=== PATIENT | male | born 1945 | race Caucasian/White ===

== ENCOUNTER 2018-09-04 14:41 | Emergency (ER) | payer MEDICARE, MEDICAID ==
[2018-09-04] MEDS ORDERED: Sodium Chloride 0.9% 10 ML Syringe FLUSH PRN (14:45)
[2018-09-04] MEDS ORDERED: Sodium Chloride 0.9% 2.5 ML Syringe FLUSH PRN (14:45)
--- NOTE | 2018-09-04 14:47 | EDM.PDOC ---
ED HPI GENERAL MEDICAL PROBLEM - General Chief Complaint: General Stated Complaint: DEHYDRATION Time Seen by Provider: 09/04/18 14:42 Source of Information: Reports: Patient History Limitations: Reports: No Limitations - History of Present Illness INITIAL COMMENTS - FREE TEXT/NARRATIVE: HISTORY AND PHYSICAL: History of present illness: Patient is a 72-year-old male who presents to the emergency room with concerns of being dehydrated. Patient was seen in our ER on 08/29/18 for hypoxia and was ultimately discharged back to the [facility]. Staff reports that the patient has not been keeping his oxygen on, appears agitated and concerned he is jaundice. Patient has a past medical history of dementia, COPD, end-stage liver disease with cirrhosis and type 2 diabetes. Patient denies any fever, chills, headache, change in vision, syncope or near syncope. Denies any chest pain, back pain, shortness of breath or cough. Denies any abdominal pain, nausea, vomiting, diarrhea, constipation or dysuria. CODE III Review of systems: As per history of present illness and below otherwise all systems reviewed and negative. Past medical history: As per history of present illness and as reviewed below otherwise noncontributory. Surgical history: As per history of present illness and as reviewed below otherwise noncontributory. Social history: See social history for further information Family history: As per history of present illness and as reviewed below otherwise noncontributory. Physical exam: General: Well-developed, alert and oriented 72-year-old male. Nontoxic appearing and in no acute distress. HEENT: Atraumatic, normocephalic, pupils equal and reactive bilaterally, negative for conjunctival pallor or scleral icterus, mucous membranes moist, trachea midline. No drooling or trismus noted. No meningeal signs. No hot potato voice noted. Lungs: Fine expiratory wheezing noted to the right upper chest wall, breath sounds equal bilaterally, chest nontender. No cough noted. Heart: S1S2, regular rate and rhythm without overt murmur Abdomen: Soft, nondistended, nontender. Negative for masses or hepatosplenomegaly. Negative for costovertebral tenderness. Skin: Old bruising to the face, top of his scalp and right elbow. Otherwise intact, warm, dry. No lesions or rashes noted. Extremities: Atraumatic, moves all extremities per self without difficulty or deficits, negative for cords or calf pain. Neurovascular unremarkable. Neuro: Awake, alert, oriented. Cranial nerves II through XII unremarkable. Cerebellum unremarkable. Motor and sensory unremarkable throughout. Exam nonfocal. Notes: Lab work is unremarkable. Vital signs remain stable. Patient does have a new moderate right upper lobe pneumonia. I talked with the patient and his sister. The sister states that he was seen by provider on Sunday and newly prescribed Levaquin. He has only had 1 dose of this so far. I did tell her about the pneumonia on our imaging. We'll give him 1 gm rocephin while here. Patient has been very agitated, he does need someone sitting with him so he does not get out of bed. The daughter at bedside states that she wishes somebody would give him medications to help keep him calm. She states they are discussing doing hospice care. I will give him a one-time dose of Ativan while here as he is very anxious and agitated. Options of admission versus discharge were discussed. Patient will return to [facility] and continue his by mouth Levaquin. Patient does have oxygen on from his previous visit with the provider and RAD diagnosed pneumonia. Supportive care measures were reviewed and discussed. Voices understanding and is agreeable to plan of care. Denies any further questions or concerns at this time. Diagnostics: CBC, CMP, UA, chest x-ray Therapeutics: IV fluids, ativan, rocephin Prescription: None Impression: Dehydration Right upper lobe pneumonia Plan: 1. Continue taking the Levaquin as prescribed. Keep oxygen on 2. Follow-up with your primary care provider as we discussed. 3. Return to the ED as needed and as discussed. Definitive disposition and diagnosis as appropriate pending reevaluation and review of above. - Related Data Allergies Allergy/AdvReac Type Severity Reaction Status Date / Time No Known Allergies Allergy Verified 08/29/18 09:58 Home Meds: Home Meds Insulin Glarg,Human.Rec.Analog [Lantus] 16 unit SQ BEDTIME 10/24/17 [History] Loperamide [Imodium] 4 mg PO DAILY 10/24/17 [History] Acetaminophen 650 mg PO Q6H PRN 08/12/18 [History] Albuterol Sulfate [Proair Hfa] 2 puff IH Q2H PRN 08/12/18 [History] Bisacodyl [Dulcolax] 10 mg RC Q24H PRN 08/12/18 [History] Calcium Polycarbophil [Fiber-Caps] 1,875 mg PO TIDAC 08/12/18 [History] Carbamide Peroxide [Debrox 6.5% Otic Soln] 5 drop EARBOTH BID PRN 08/12/18 [ History] Dextromethorphan HBr [Tussin Cough] 10 ml PO Q4H PRN 08/12/18 [History] Insulin Lispro [Humalog Kwikpen U-100] See Protocol SQ TIDMEALS 08/12/18 [ History] Lactulose [Enulose] 30 ml PO BID 08/12/18 [History] Lisinopril [Prinivil] 2.5 mg PO DAILY 08/12/18 [History] Magnesium Hydroxide [Milk of Magnesia] 30 ml PO Q24H PRN 08/12/18 [History] Mineral Oil/Petrolatum [Aquaphor Healing Oint] 1 applicful TOP BID PRN 08/12/18 [History] Multivitamin [Multivitamins] 1 each PO DAILY 08/12/18 [History] Propranolol [Inderal] 20 mg PO BID 08/12/18 [History] sitaGLIPtin Phos/Metformin HCl [Janumet 50-1,000 MG] 50 - 1,000 mg PO BID [History] Albuterol [Proventil Neb Soln] 2.5 mg NEB Q6H 08/29/18 [History] Past Medical History HEENT History: Reports: Other (See Below) Other HEENT History: wears glasses, has upper and lower dentures- only wears upper Cardiovascular History: Reports: Aneurysm, High Cholesterol Respiratory History: Reports: COPD Other Respiratory History: emphysema Gastrointestinal History: Reports: Chronic Diarrhea, Cirrhosis, Hiatal Hernia Other Gastrointestinal History: Calculus of the gallbladder. Diarrhea. Genitourinary History: Reports: None Musculoskeletal History: Reports: Other (See Below) Other Musculoskeletal History: Joint effusion Neurological History: Reports: Concussion Psychiatric History: Reports: Other (See Below) Other Psychiatric History: sister says he has a flat affect- possible from alcohol Endocrine/Metabolic History: Reports: Diabetes, Type II, Other (See Below) Other Endocrine/Metabolic History: being tested for Marphans syndrome Hematologic History: Reports: Anemia Immunologic History: Reports: None Oncologic (Cancer) History: Reports: None Dermatologic History: Reports: Other (See Below) Other Dermatologic History: very dry scaley skin - Infectious Disease History Infectious Disease History: Reports: None - Past Surgical History Head Surgeries/Procedures: Reports: None Cardiovascular Surgical History: Reports: AAA Repair Other Cardiovascular Surgeries/Procedures: Endovascular repair Social & Family History - Family History Family Medical History: Noncontributory - Caffeine Use Caffeine Use: Reports: None ED ROS GENERAL - Review of Systems Review Of Systems: ROS reveals no pertinent complaints other than HPI. ED EXAM, GENERAL - Physical Exam Exam: See Below (See dictation) Course - Vital Signs Last Recorded V/S: Last Vital Signs Temp 98.8 F 09/04/18 14:43 Pulse 83 09/04/18 14:43 Resp 18 09/04/18 14:43 BP 132/63 09/04/18 14:43 Pulse Ox 89 L 09/04/18 14:43 - Orders/Labs/Meds Orders: Active Orders 24 hr Category Date Time Status UA W/MICROSCOPIC [URIN] Stat Lab 09/04/18 16:15 Results Sodium Chloride 0.9% [Saline Flush] Med 09/04/18 14:45 Active 10 ml FLUSH ASDIRECTED PRN Sodium Chloride 0.9% [Saline Flush] Med 09/04/18 14:45 Active 2.5 ml FLUSH ASDIRECTED PRN Saline Lock Insert [OM.PC] Stat Oth 09/04/18 14:45 Ordered Medication Orders Sodium Chloride (Saline Flush) 10 ml FLUSH ASDIRECTED PRN PRN Reason: Keep Vein Open Last Admin: 09/04/18 15:26 Dose: 10 ml Sodium Chloride (Saline Flush) 2.5 ml FLUSH ASDIRECTED PRN PRN Reason: Keep Vein Open Last Admin: 09/04/18 15:25 Dose: 2.5 ml Labs: Laboratory Tests 09/04/18 09/04/18 09/04/18 Range/Units 14:55 14:55 16:15 WBC 5.87 (4.0-11.0) K/uL RBC 3.44 L (4.50-5.90) M/uL Hgb 13.0 (13.0-17.0) g/dL Hct 37.6 L (38.0-50.0) % MCV 109.3 H (80.0-98.0) fL MCH 37.8 H (27.0-32.0) pg MCHC 34.6 (31.0-37.0) g/dL RDW Std Deviation 52.7 (28.0-62.0) fl RDW Coeff of Brittani 13 (11.0-15.0) % Plt Count 130 L (150-400) K/uL MPV 9.50 (7.40-12.00) fL Add Manual Diff YES Neutrophils % (Manual) 65 (48.0-80.0) % Lymphocytes % (Manual) 20 (16.0-40.0) % Monocytes % (Manual) 14 (0.0-15.0) % Eosinophils % (Manual) 1 (0.0-7.0) % Nucleated RBC % 0.0 /100WBC Absolute Seg Neuts 3.8 (1.4-5.7) Lymphocytes # (Manual) 1.2 (0.6-2.4) Monocytes # (Manual) 0.8 (0.0-0.8) Eosinophils # (Manual) 0.1 (0.0-0.7) Nucleated RBCs # 0 K/uL Sodium 132 L (136-148) mmol/L Potassium 4.7 (3.5-5.1) mmol/L Chloride 99 (98-107) mmol/L Carbon Dioxide 25.6 (21.0-32.0) mmol/L BUN 17 (7.0-18.0) mg/dL Creatinine 0.5 L (0.8-1.3) mg/dL Est Cr Clr Drug Dosing 132.80 mL/min Estimated GFR (MDRD) > 60.0 ml/min Glucose 170 H (74-106) mg/dL Calcium 8.8 (8.5-10.1) mg/dL Total Bilirubin 0.8 (0.2-1.0) mg/dL AST 54 H (15-37) IU/L ALT 68 H (14-63) IU/L Alkaline Phosphatase 115 (46-116) U/L Total Protein 6.0 L (6.4-8.2) g/dL Albumin 3.0 L (3.4-5.0) g/dL Globulin 3.0 (2.6-4.0) g/dL Albumin/Globulin Ratio 1.0 (0.9-1.6) Urine Color YELLOW Urine Appearance SLT CLOUDY Urine pH 6.0 (5.0-8.0) Ur Specific [place] 1.025 (1.001-1.035) Urine Protein TRACE H (NEGATIVE) mg/dL Urine Glucose (UA) NEGATIVE (NEGATIVE) mg/dL Urine Ketones TRACE H (NEGATIVE) mg/dL Urine Occult Blood NEGATIVE (NEGATIVE) Urine Nitrite NEGATIVE (NEGATIVE) Urine Bilirubin NEGATIVE (NEGATIVE) Urine Urobilinogen 0.2 (<2.0) EU/dL Ur Leukocyte Esterase NEGATIVE (NEGATIVE) Meds: Medications Generic Name Dose Route Start Last Admin Trade Name Freq PRN Reason Stop Dose Admin Sodium Chloride 10 ml 09/04/18 14:45 09/04/18 15:26 Saline Flush FLUSH 10 ml ASDIRECTED PRN Administration Keep Vein Open Sodium Chloride 2.5 ml 09/04/18 14:45 09/04/18 15:25 Saline Flush FLUSH 2.5 ml ASDIRECTED PRN Administration Keep Vein Open Discontinued Medications Generic Name Dose Route Start Last Admin Trade Name Freq PRN Reason Stop Dose Admin Sodium Chloride 1,000 mls @ 999 mls/hr 09/04/18 15:14 09/04/18 15:57 Normal Saline IV 09/04/18 16:14 200 mls/hr STAT ONE Infusion Ceftriaxone Sodium/Dextrose 1 50 mls @ 100 mls/hr 09/04/18 15:50 09/04/18 16: 01 gm/ Premix IV 09/04/18 16:19 100 mls/hr ONETIME ONE Administration Lorazepam 0.5 mg 09/04/18 15:53 09/04/18 15:58 Ativan IVPUSH 09/04/18 15:54 0.5 mg ONETIME ONE Administration Departure - Departure Time of Disposition: 16:03 Disposition: Home, Self-Care 01 Clinical Impression: Dehydration Pneumonia Qualifiers: Pneumonia type: due to unspecified organism Laterality: right Lung location: upper lobe of lung Qualified Code(s): J18.1 - Lobar pneumonia, unspecified organism - Discharge Information Referrals: Devin Osuna MD [Primary Care Provider] - Forms: ED Department Discharge Additional Instructions: The following information is given to patients seen in the emergency department who are being discharged to home. This information is to outline your options for follow-up care. We provide all patients seen in our emergency department with a follow-up referral. The need for follow-up, as well as the timing and circumstances, are variable depending upon the specifics of your emergency department visit. If you don't have a primary care physician on staff, we will provide you with a referral. We always advise you to contact your personal physician following an emergency department visit to inform them of the circumstance of the visit and for follow-up with them and/or the need for any referrals to a consulting specialist. The emergency department will also refer you to a specialist when appropriate. This referral assures that you have the opportunity for follow-up care with a specialist. All of these measure are taken in an effort to provide you with optimal care, which includes your follow-up. Under all circumstances we always encourage you to contact your private physician who remains a resource for coordinating your care. When calling for follow-up care, please make the office aware that this follow-up is from your recent emergency room visit. If for any reason you are refused follow-up, please contact the [facility] Emergency Department at and asked to speak to the emergency department charge nurse. [facility] [address] [place] [address] [id number] [address] [address] 1. Continue taking the Levaquin as prescribed. Keep oxygen on. 2. Follow-up with your primary care provider as we discussed. 3. Return to the ED as needed and as discussed. - My Orders Last 24 Hours: My Active Orders 09/04/18 14:45 Sodium Chloride 0.9% [Saline Flush] 10 ml FLUSH ASDIRECTED PRN Sodium Chloride 0.9% [Saline Flush] 2.5 ml FLUSH ASDIRECTED PRN Saline Lock Insert [OM.PC] Stat 09/04/18 16:15 UA W/MICROSCOPIC [URIN] Stat - Assessment/Plan Last 24 Hours: My Active Orders 09/04/18 14:45 Sodium Chloride 0.9% [Saline Flush] 10 ml FLUSH ASDIRECTED PRN Sodium Chloride 0.9% [Saline Flush] 2.5 ml FLUSH ASDIRECTED PRN Saline Lock Insert [OM.PC] Stat 09/04/18 16:15 UA W/MICROSCOPIC [URIN] Stat
[2018-09-04] MEDS ORDERED: Sodium Chloride 0.9% 1,000 ML IV ONE (15:14)
--- NOTE | 2018-09-04 15:44 | CR ---
HISTORY: Hypoxia COMPARISON: 08/29/2018 FINDINGS: A portable erect AP view of the chest was obtained at 15 13 hours. There is a new moderate infiltrate in the inferior aspect of the anterior segment of the right upper lobe adjacent to the minor fissure consistent with new moderate right upper lobe pneumonia. There is new mild patchy right infrahilar infiltrate consistent with new mild right lower lobe pneumonia. The previously seen mild patchy retrocardiac infiltrate has resolved. The rest of the chest remains clear. The heart remains normal in size. The mediastinum is normal in appearance. The osseous structures are normal in appearance for the patient`s age. IMPRESSION: New moderate right upper lobe pneumonia in the anterior segment of the right upper lobe. New mild pneumonia in the right infrahilar lung, probably in the right lower lobe. Resolution of mild patchy retrocardiac infiltrate. Dictated by Shreyas Rabago MD @ Sep 04 2018 3:41PM Signed by Dr. Shreyas Rabago @ Sep 04 2018 3:43PM
[2018-09-04 15:49] LABS: BLOOD UREA NITROGEN,BUN 17 mg/dL (7.0-18.0); CARBON DIOXIDE,CO2 25.6 mmol/L (21.0-32.0); CHLORIDE,CL 99 mmol/L (98-107); GLUCOSE RANDOM 170 mg/dL (74-106); POTASSIUM,K 4.7 mmol/L (3.5-5.1); SODIUM,NA 132 mmol/L (136-148)
[2018-09-04] MEDS ORDERED: cefTRIAXone 1 GM in Premix Bag 1 BAG IV ONE (15:50)
[2018-09-04] MEDS ORDERED: LORazepam 2 MG/ML SDV IVPUSH ONE (15:53)
== END 2018-09-04 17:15 | disposition home or self-care (01) ==
LOC: MERGE 14:41 → MW.ED 14:41
DX: J18.1 Lobar pneumonia, unspecified organism (principal); E86.0 Dehydration; E11.9 Type 2 diabetes mellitus without complications; F03.90 Unspecified dementia, unspecified severity, without behavioral disturbance, psychotic disturbance, mood disturbance, and anxiety; Z79.4 Long term (current) use of insulin; Z79.899 Other long term (current) drug therapy
CPT/HCPCS: 36415; 71045; 80053; 81001; 85025; 96361; 96365; 96375; 99285; J0696; J2060; J7040; 99283